=== PATIENT | female | born 1975 ===

== ENCOUNTER 2024-08-23 07:21 | Outpatient (CLI) | payer OTHER ==
[2024-08-23 09:32] LABS: ALBUMIN 3.6 gm/dL (3.4-5.0); BILIRUBIN TOTAL 0.36 mg/dL (0.3-1.2); CALCIUM 9.3 mg/dL (8.5-10.1); CREATININE SERUM 0.49 mg/dL (0.55-1.02); GFR 135.37; GLOBULINA 3.8 G/DL (2.4-3.5); POTASSIUM 4.22 mEq/L (3.5-5.1); TOTAL PROTEIN 7.4 gm/dL (6.4-8.2)
[2024-08-23 09:38] LABS: HEMATOCRIT 39.7 % (36.0-45.00); HEMOGLOBIN 13.3 g/dL (12.0-15.00); MEAN CELL VOLUME 81.6 fL (80.00-100.00); MEAN CORPUSCULAR HEMOGLOBIN 27.3 pg (27.00-32.0); MEAN CORPUSCULAR HGB CONC 33.5 g/dl (32.0-36.0); PLATELET COUNT 235 K/uL (150-450); RED BLOOD COUNT 4.86 M/uL (4.00-6.00); RED CELL DISTRIBUTION WIDTH 14.2 % (11.5-14.5)
== END 2024-08-23 07:22 | disposition home or self-care (01) ==
LOC: LAB 07:21
DX: C20 Malignant neoplasm of rectum (principal); E78.5 Hyperlipidemia, unspecified

== ENCOUNTER 2024-08-25 09:02 | Outpatient (CLI) | payer OTHER | END 2024-08-25 09:13 | disposition home or self-care (01) | LOC: TOM 09:02 | PROVIDERS: ATTEND Pediatrics | DX: C20 Malignant neoplasm of rectum (principal) ==